=== PATIENT | female | born 1990 | race Two or more races ===

== ENCOUNTER 2020-07-31 12:39 | Inpatient (IN) | payer BC ==
[~2020-07-31] VITALS: Ht 154.9 cm; Wt 72.7 kg
[2020-07-31] MEDS ORDERED: AMPICILLIN 2 GM in SODIUM CHLORIDE 0.9% 100 ML IVPB ONE (12:44)
[2020-07-31] MEDS ORDERED: MISOPROSTOL 200 MCG TABLET ONE (12:54)
[2020-07-31] MEDS ORDERED: OXYTOCIN 30U/ 0.9% NaCL 500ML 500 ML ONE ×2 (12:54→23:14)
[2020-07-31] MEDS ORDERED: CALCIUM CARBONATE 500 MG TAB.CHEW PO PRN (13:00)
[2020-07-31] MEDS ORDERED: FENTANYL PF 100 MCG/2ML IV PRN (13:00)
[2020-07-31] MEDS ORDERED: TERBUTALINE 1 MG/ML, 1ML SQ PRN (13:00)
[2020-07-31] MEDS ORDERED: PLEASE ENTER HEIGHT AND WEIGHT MC SCH (13:00)
[2020-07-31] MEDS ORDERED: D5%-LACTATED RINGERS 1,000 ML IV SCH (13:00)
[2020-07-31] MEDS ORDERED: SODIUM CITRATE/CITRIC ACID 30 ML UDC PO PRN (13:00)
[2020-07-31] MEDS ORDERED: OXYTOCIN 30U/ 0.9% NaCL 500ML 500 ML IV PRN (13:00)
[2020-07-31] MEDS ORDERED: METOCLOPRAMIDE 5 MG/ML, 2ML IVPush PRN (13:00)
[2020-07-31] MEDS ORDERED: FENTANYL PF 100 MCG/2ML IVPush PRN (13:00)
[2020-07-31] MEDS ORDERED: TERBUTALINE 1 MG/ML, 1ML IVPush PRN (13:00)
[2020-07-31] MEDS ORDERED: ONDANSETRON 2MG/ML, 2ML IVPush PRN (13:00)
[2020-07-31] MEDS ORDERED: PLEASE ENTER ALLERGIES MC SCH (13:00)
[2020-07-31] MEDS: LACTATED RINGERS 1,000 ML IV SCH ×2 (13:07→20:00)
[2020-07-31 13:13] LABS: BASOPHILS % (AUTO) 1 % (0-1); EOSINOPHILS % (AUTO) 0 % (1-7); LYMPHOCYTES % (AUTO) 30 % (22-44); MEAN CORPUSCULAR HEMOGLOBIN 28.6 pg (27.0-34.8); MEAN CORPUSCULAR HGB CONC 34.4 g/dL (32.4-35.8); MEAN PLATELET VOLUME 7.5 fL (7.4-10.4); MONOCYTES % (AUTO) 6 % (2-9); NEUTROPHILS % (AUTO) 63 % (42-75); PLATELET COUNT 252 x10^3/uL (130-400); RED BLOOD COUNT 4.29 x10^6/uL (3.82-5.3)
[2020-07-31 13:19] LABS: MD NO
[2020-07-31] MEDS ORDERED: NEWBORN KIT ONE (13:24)
[2020-07-31 13:34] VITALS: BP 117/56
[2020-07-31] MEDS: AMPICILLIN 1 GM in SODIUM CHLORIDE 0.9% 100 ML IVPB SCH ×2 (17:32→21:34)
[2020-07-31] MEDS ORDERED: FENTANYL/BUPIV./NS/PF 250 ML EPIDCONT ONE (19:51)
[2020-07-31] MEDS ORDERED: BUPIVACAINE 0.25% ONE (19:51)
[2020-07-31] MEDS ORDERED: LACTATED RINGERS 1,000 ML IVBOLUS PRN (20:30)
[2020-07-31] MEDS ORDERED: FENTANYL/BUPIV./NS/PF 250 ML EPIDCONT SCH (20:30)
[2020-07-31] MEDS ORDERED: EPHEDRINE 50 MG/ML, 1ML IVPush PRN (20:30)
[2020-07-31] MEDS ORDERED: LACTATED RINGERS 1,000 ML IV SCH (20:30)
[2020-07-31] MEDS ORDERED: OXYcodone/APAP 5/325MG TABLET PO PRN (23:30)
[2020-07-31] MEDS ORDERED: IBUPROFEN 800 MG TABLET PO PRN (23:30)
[2020-07-31] MEDS: OXYTOCIN 30U/ 0.9% NaCL 500ML 500 ML IV SCH (23:30)
[2020-07-31] MEDS ORDERED: SIMETHICONE 80 MG CHEW TAB PO PRN (23:30)
[2020-07-31] MEDS ORDERED: OXYcodone IR 5MG TABLET PO PRN (23:30)
[2020-07-31] MEDS ORDERED: DOCUSATE 100 MG CAPSULE PO PRN (23:30)
[2020-07-31] MEDS ORDERED: OXYTOCIN 10 UNITS/ML, 1ML IM PRN (23:30)
[2020-07-31] MEDS ORDERED: METHYLERGONOVINE 0.2 MG/ML IM PRN (23:30)
[2020-07-31] MEDS ORDERED: ACETAMINOPHEN 325 MG TABLET PO PRN (23:30)
[2020-07-31] MEDS ORDERED: ONDANSETRON 2MG/ML, 2ML IV PRN (23:30)
[2020-08-01 01:45] VITALS: BP 99/62
[2020-08-01] MEDS: LACTATED RINGERS 1,000 ML IV SCH ×3 (03:44→21:00)
[2020-08-01 04:33] VITALS: BP 94/59
[2020-08-01 08:00] VITALS: BP 112/72
[2020-08-01 08:08] LABS: BASOPHILS % (AUTO) 1 % (0-1); EOSINOPHILS % (AUTO) 1 % (1-7); LYMPHOCYTES % (AUTO) 23 % (22-44); MEAN CORPUSCULAR HEMOGLOBIN 28.4 pg (27.0-34.8); MEAN CORPUSCULAR HGB CONC 33.5 g/dL (32.4-35.8); MEAN PLATELET VOLUME 7.6 fL (7.4-10.4); MONOCYTES % (AUTO) 7 % (2-9); NEUTROPHILS % (AUTO) 68 % (42-75); PLATELET COUNT 237 x10^3/uL (130-400); RED CELL DISTRIBUTION WIDTH 14.3 % (9.6-15.2)
[2020-08-01 08:09] LABS: MD NO
[2020-08-01] MEDS ORDERED: PRENATAL VIT/IRON/FA 1 EACH TABLET PO SCH (09:00)
[2020-08-01] MEDS: OXYTOCIN 30U/ 0.9% NaCL 500ML 500 ML IV SCH ×2 (09:30→19:30)
[2020-08-01 13:11] VITALS: BP 109/69
[2020-08-01 19:49] VITALS: BP 102/63
[2020-08-02] MEDS: LACTATED RINGERS 1,000 ML IV SCH ×2 (05:00→07:05)
[2020-08-02] MEDS: OXYTOCIN 30U/ 0.9% NaCL 500ML 500 ML IV SCH ×2 (05:30→07:05)
[2020-08-02 08:30] VITALS: BP 111/66
[2020-08-02] MEDS ORDERED: IBUP-1222 PO (08:30)
== END 2020-08-02 10:00 | disposition home or self-care (01) | DRG 807 ==
LOC: LDIP 12:39 → 2NW 08-01 01:27
PROVIDERS: ADMIT Obstetrics & Gynecology; ATTEND Obstetrics & Gynecology
PROC: 10E0XZZ Delivery of Products of Conception, External Approach (ICD-10-PCS; principal; 2020-07-31)
PROC: 3E0R3BZ Introduction of Anesthetic Agent into Spinal Canal, Percutaneous Approach (ICD-10-PCS; 2020-07-31)
PROC: 00HU33Z Insertion of Infusion Device into Spinal Canal, Percutaneous Approach (ICD-10-PCS; 2020-07-31)
DX: O35.8XX0 Maternal care for other (suspected) fetal abnormality and damage, not applicable or unspecified (principal); Z37.0 Single live birth; Z3A.39 39 weeks gestation of pregnancy; Z20.822 Contact with and (suspected) exposure to COVID-19
CPT/HCPCS: 36415; 85025; 86592; 86850; 86900; 87635; G0378; J0290; J2590; J3010; J7120